=== PATIENT | male | born 1950 | race Caucasian/White ===

== ENCOUNTER 2025-02-28 11:43 | Emergency (ER) | payer MEDICARE, OTHER, SELFPAY ==
[2025-02-28 11:54] VITALS: BP 162/80; PULSE 88; RESP 18; TEMP 36.3; O2SAT 99; BMI 29.2
--- NOTE | 2025-02-28 12:04 | DI.CT.S_ITS ---
PROCEDURE: CT CHEST ABD PEL W CON INDICATIONS: Fall on warfrin with abdomen bruising TECHNIQUE: After the administration of intravenous contrast, 5 mm thick sections acquired from the lung apices to the symphysis. 2.5 mm thick coronal and sagittal reformats were acquired. Additional 7 mm thick coronal maximum intensity projection (MIP) reformats acquired through the lungs. Optional 10-minute delayed imaging may be performed from the kidneys to the bladder. For radiation dose reduction, the following was used: automated exposure control, adjustment of mA and/or kV according to patient size. COMPARISON: None. FINDINGS: Image quality: Diagnostic. CHEST: Lower Neck: No enlarged lymph nodes. Thyroid: No thyroid nodules which require sonographic evaluation. Axillae: No enlarged lymph nodes. Chest Wall: No subcutaneous gas. Lungs and Pleura: No pulmonary contusions or lacerations. No acute airspace opacities. No pneumothorax or hemothorax. Mild paraseptal emphysema. A few pulmonary micro nodules, largest measuring 2 millimeter in the right upper lobe (series 6, image 86). Mediastinum: No mediastinal hematomas. Heart size is enlarged. No pericardial effusion. Thoracic aorta and pulmonary arteries demonstrate normal size and enhancement. No mediastinal or hilar adenopathy. Esophagus is normal in caliber. No hiatal hernia. 2 vessel coronary artery calcifications. ABDOMEN: Liver: No lacerations. Hepatic cysts. Additional subcentimeter hypoattenuating lesions, too small to characterize by CT. Gallbladder: No radiopaque gallstones or wall thickening. Biliary ducts: No biliary dilation. Pancreas: Homogenous enhancement. Spleen: Homogenous enhancement without laceration or hematoma. Adrenal Glands: Symmetric enhancement. Kidneys and Ureters: Symmetric enhancement. No hydronephrosis. No solid mass. No complex renal cystic lesion which requires follow up. Stomach and Bowel: Normal colonic caliber, without significant wall thickening. Colonic diverticulosis without evidence of diverticulitis. Peritoneum: No abnormal intraperitoneal fluid. No free air. Ventral Wall: Small umbilical hernia containing fat. Abdominal Nodes: No retroperitoneal or mesenteric adenopathy by size criteria. Vessels: Aorta and inferior vena cava are normal in size. PELVIS: Pelvic Organs: Unremarkable. Bladder: Normal thickness. Pelvic Nodes: No enlarged lymph nodes. Miscellaneous: Small right indirect inguinal hernia containing fat. Bones: Pelvic ring and hip joints appear intact. No displaced rib fractures. Grade 1 anterolisthesis of L4 on L5 due to facet arthrosis. IMPRESSION: No evidence of traumatic injury to the chest, abdomen or pelvis. Pulmonary micronodules. Consider 12 month follow-up if at high risk for developing lung cancer, per Fleischner Society guidelines. Dictated by: Reginald Pichardo M.D. on 02/28/2025 at 12:52 Approved by: Reginald Pichardo M.D. on 02/28/2025 at 12:59
--- NOTE | 2025-02-28 12:08 | ED_ITS ---
<Statement entered by Rahul Babb, DO - 02/28/25 18:23> Co-sign statement: I was available for consultation during this patient's emergency department visit. This chart is being signed by myself for administrative purposes only. I do not have direct contact with this patient during this visit. They were seen independently by the APC. HPI - Fall General Chief Complaint: Fall Stated Complaint: thinks cracked rib right side Time Seen by Provider: 02/28/25 12:00 Source: patient Mode of arrival: Ambulatory History of Present Illness HPI Narrative: 75-year-old male with past medical history AFib, on warfarin presents to the ED status post a mechanical fall sustained last night. Patient was camping at [place], was hurrying to key a squirrel of the picnic table, when he tripped on a rock, causing him to fall and strike his right lower ribs on the corner of the picnic table. Patient has a bruise and is endorsing severe pain in the right lower rib and upper abdominal area. Pain is aggravated with inspiration. In the ED, patient is breathing comfortably. No chest pain, nausea, vomiting, lightheadedness, dizziness, syncope. No head strike. Patient took some Tylenol for pain control. Related Data Previous Rx's ?Medication ?Instructions ?Recorded oxycodone-acetaminophen 5 mg-325 1 tab PO Q4-6H PRN pa in #20 tabs 02/28/25 mg tablet (Percocet) Allergies Allergy/AdvReac Type Severity Reaction Status Date / Time lisinopril AdvReac Cough Verified 02/28/25 11:55 Review of Systems Constitutional Constitutional: Denies chills, Denies fatigue, Denies fever(s), Denies frequent falls, Denies lethargy and Denies weakness Eyes Eyes: Denies change in vision, Denies eye discharge, Denies irritation and Denies loss of vision ENT Ears, Nose, Mouth, and Throat: Denies change in voice, Denies dizziness, Denies neck pain, Denies sore throat and Denies throat swelling Cardiovascular Cardiovascular: Denies chest pain, Denies irregular heart rhythm, Denies lightheadedness, Denies palpitations, Denies dyspnea, Denies dyspnea on exertion and Denies orthopnea Respiratory Respiratory: Denies cough, Denies dyspnea, Denies dyspnea on exertion and Denies wheezing Gastrointestinal Gastrointestinal: Reports abdominal pain, Denies change in bowel habits, Denies diarrhea, Denies nausea and Denies vomiting Comments: RUQ pain Musculoskeletal Musculoskeletal: Denies neck pain and Denies numbness Comments: Right-sided lower rib pain, bruising Integumentary/Breasts Skin/Breast: Denies pruritus, Denies erythema, Denies rash and Denies wounds Neurologic Neurologic: Denies behavioral changes, Denies confusion, Denies dizziness, Denies frequent falls, Denies loss of vision, Denies numbness and Denies weakness Psychiatric Psychiatric: Denies anxiety, Denies behavioral changes, Denies confusion, Denies depression, Denies homicidal ideation and Denies suicidal ideation Endocrine Endocrine: Denies fatigue, Denies flushing and Denies palpitations Hematologic/Lymphatic Hematologic/Lymphatic: Denies easy bruising Allergic/Immunologic Allergic/Immunologic: Denies urticaria, Denies throat swelling and Denies wheezing Patient History Social History Smoking Status: Former smoker Smoking Status: Former smoker Exam Narrative Exam Narrative: General:?cooperative, healthy appearing and comfortable [facility] Head:?normal to inspection Ears:?hearing grossly normal bilaterally Nose:?external nose normal Face and sinus:?normal facial exam and sinuses nontender Mouth:?oral mucosae normal Throat:?posterior oropharynx normal Eyes General:?appearance normal, both eyes and all related structures Neck Neck:?normal visual inspection and no lymphadenopathy noted Resp Effort & Inspection:?normal respiratory effort Auscultation:?clear to auscultation bilaterally Cardio Rate:?regular rate Rhythm:?regular rhythm GI/Musculoskeletal There is bruising to the right lower ribs. Exquisitely tender palpation in the right lower ribs, RUQ. Abdomen is soft, nondistended. Neuro General:?patient alert, patient awake and patient oriented x3 Initial Vital Signs Initial Vital Signs: Vital Signs Temperature 97.4 F L 02/28/25 11:54 Pulse Rate 88 02/28/25 11:54 Respiratory Rate 18 02/28/25 11:54 Blood Pressure 162/80 H 02/28/25 11:54 Pulse Oximetry 99 02/28/25 11:54 Oxygen Delivery Method Room Air 02/28/25 11:54 Course Orders Ordered: ED Orders 02/28/25 12:04 CT chest abd pel w con Stat 02/28/25 12:29 CBC Auto Diff [Complete Blood Count AUTO DIFF] Stat CMP [Comprehensive Metabolic Panel] Stat Lipase Stat PTT Partial Thromboplastin Matthew Stat Prothrombin Time INR Stat Discontinued Medications Morphine Sulfate (Morphine 4 Mg/Ml Inj) 4 mg IV NOW ONE Stop: 02/28/25 12:20 Last Admin: 02/28/25 12:40 Dose: 4 mg Documented By: KRISTY Vital Signs Vital signs: Vital Signs - 8 hr 02/28/25 11:54 02/28/25 12:50 02/28/25 12:50 Temperature 97.4 F L Pulse Rate 88 80 Respiratory Rate 18 12 Blood Pressure 162/80 H 157/94 H Pulse Oximetry 99 100 Oxygen Delivery Method Room Air 02/28/25 12:51 02/28/25 13:00 02/28/25 13:00 Temperature Pulse Rate 79 81 Respiratory Rate 12 12 Blood Pressure 157/94 H 155/86 H Pulse Oximetry 99 99 Oxygen Delivery Method Room Air MDM - Fall Lab Data 02/28/25 12:29 02/28/25 12:29 Labs: Lab Results 02/28/25 Range/Units 12:29 WBC 8.6 (4.5-11.0) X10^3/uL RBC 5.00 (4.5-5.9) X10^6/uL Hgb 15.8 (13.5-17.5) g/dL Hct 47.3 (41-53) % MCV 94.6 (80-100) fL MCH 31.7 (26-34) PG MCHC 33.5 (30-36) % RDW 13.7 (11.6-14.8) % Plt Count 206 (150-400) X10^3/uL Neut % (Auto) 76.2 H (50-75) % Lymph % (Auto) 10.9 L (25-40) % [place]rick % (Auto) 8.2 (3-14) % Eos % (Auto) 3.8 (2-4) % Baso % (Auto) 0.9 (0-2) % Neut # (Auto) 6600 (3161-2837) /uL Lymph # (Auto) 900 L (6949-3124) /uL Warrick # (Auto) 700 (0-900) /uL Eos # (Auto) 300 (0-450) /uL Baso # (Auto) 100 (0-100) /uL PT 41.2 H (9.4-12.5) SECONDS INR 3.8 H (0.9-1.3) APTT 46 H (25.1-36.5) SECONDS Sodium 140 (137-145) mmol/L Potassium 4.6 (3.4-5.1) mmol/L Chloride 103 (98-107) mmol/L Carbon Dioxide 27 (22-32) mmol/L BUN 26 H (9-20) mg/dL Creatinine 1.00 (0.66-1.25) mg/dL Estimated GFR > 60 (>60) mL/min BUN/Creatinine Ratio 26.0 H (6-22) Glucose 97 (70-99) mg/dL Calcium 9.3 (8.4-10.2) mg/dL Total Bilirubin 1.2 (0.2-1.3) mg/dL AST 40 (17-59) IU/L ALT 32 (<50) IU/L Alkaline Phosphatase 89 (38-126) U/L Total Protein 7.7 (6.3-8.2) g/dL Albumin 4.8 (3.5-5.0) g/dL Globulin 2.9 (1.7-4.1) g/dL Albumin/Globulin Ratio 1.7 (1.0-2.8) Lipase 71 (23-300) U/L MDM Narrative Medical decision making narrative: 75-year-old male with past medical history AFib, on warfarin presents to the ED status post a mechanical fall sustained last night. Concern for rib fracture versus intra-abdominal injuries versus contusion versus other. Will obtain CT chest abdomen pelvis, labs. Will give morphine for pain. Will reassess. Labs unremarkable. INR at therapeutic levels. CT chest abdomen pelvis shows no evidence of traumatic injury to the chest, abdomen or pelvis. There are pulmonary micro nodules. Consider 12 month follow-up if at high risk for developing lung cancer. Discussed findings with patient. Patient is already seeing a waiter/waitress cafeteria regarding the micro nodules. Patient prescribed Percocet for pain. ED return precautions discussed with patient. Patient verbalized understanding. Medical records reviewed: Yes Discharge Plan Departure Patient Disposition: Home Clinical Impression: Rib pain Instructions: DI for Rib Contusion, How to Prevent Falls Activity Restrictions/Additional Instructions: You were evaluated in the ED today for right-sided rib pain from a fall. Your labs and CT were normal. It appears that your symptoms are due to a contusion/bruise that you in good from the fall. It is important to control the pain so you can take full deep breaths to avoid complications such as pneumonia. You are being prescribed Percocet for pain control. Please be aware this medication can make you sleepy, therefore please avoid taking if you are driving or operating machinery. Please follow-up with your PCP as soon as possible. Return to the ED if you have worsening symptoms, chest pain, shortness of breath. Prescriptions: New oxycodone-acetaminophen [Percocet] 5-325 mg tablet 1 tab PO Q4-6H PRN (Reason: pain) Qty: 20 0RF Stand Alone Forms: Patient Portal/API
[2025-02-28] MEDS: MORPHINE 4 MG/ML INJ IV (12:40)
[2025-02-28 12:43] LABS: Add Manual Diff / Slide Review NO; Hematocrit 47.3 % (41-53); Hemoglobin 15.8 g/dL (13.5-17.5); INR 3.8 (0.9-1.3); Lymphocytes Absolute Auto 900 /uL (1100-4500); Mean Corpuscular HGB Conc 33.5 % (30-36); Mean Corpuscular Hemoglobin 31.7 PG (26-34); Mean Corpuscular Volume 94.6 fL (80-100); Platelet Count 206 X10^3/uL (150-400); Prothrombin Time 41.2 SECONDS (9.4-12.5)
[2025-02-28 12:45] LABS: PTT Partial Thromboplastin Tim 46 SECONDS (25.1-36.5)
[2025-02-28 12:47] LABS: Alanine Aminotransferase 32 IU/L (<50); Albumin 4.8 g/dL (3.5-5.0); Albumin Globulin Ratio 1.7 (1.0-2.8); Alkaline Phosphatase 89 U/L (38-126); Blood Urea Nitrogen 26 mg/dL (9-20); Calcium 9.3 mg/dL (8.4-10.2); Carbon Dioxide 27 mmol/L (22-32); Chloride 103 mmol/L (98-107); Estimated Glomerular Filt Rate > 60 mL/min (>60); Globulin 2.9 g/dL (1.7-4.1); Glucose 97 mg/dL (70-99); HEMOLYSIS 18 (0-50); Lipase 71 U/L (23-300); Potassium 4.6 mmol/L (3.4-5.1); Sodium 140 mmol/L (137-145); Total Protein 7.7 g/dL (6.3-8.2)
[2025-02-28 12:50] VITALS: BP 157/94; PULSE 80; RESP 12; O2SAT 100
[2025-02-28 12:51] VITALS: BP 157/94; PULSE 79; RESP 12; O2SAT 99
[2025-02-28 13:00] VITALS: BP 155/86; PULSE 81; RESP 12; O2SAT 99
== END 2025-02-28 13:34 | disposition home or self-care (01) ==
PROVIDERS: Emergency Provider Student in an Organized Health Care Education/Training Program
DX: S20.211A Contusion of right front wall of thorax, initial encounter (principal); W01.198A Fall on same level from slipping, tripping and stumbling with subsequent striking against other object, initial encounter; Z79.01 Long term (current) use of anticoagulants
CPT/HCPCS: 36415; 71260; 74177; 80053; 83690; 85025; 85610; 85730; 96374; 99284; J2270; Q9967